=== PATIENT | female | born 1980 | race African-American/Black ===

== ENCOUNTER 2019-10-13 04:05 | Inpatient (IN) | payer OTHER ==
[~2019-10-13] VITALS: Ht 157.5 cm; Wt 87.0 kg
[2019-10-13 07:59] VITALS: BP 150/99
--- NOTE | 2019-10-13 08:00 | NUR ---
NEW PATIENT ADMIT VIA STRETCHER FROM [place] FOR HIGHER LEVEL OF CARE. PATIENT TRANSFERRED TO BED EASILY. PATIENT IS AWAKE, ALERT AND ORIENTED X 4. PATIENT IS VERY PLEASANT IN NO ACUTE DISTRESS. PATIENT ASSESMENT COMPLETED. PATIENT ON NC @ 4L/MIN. O2 SAT 95%. BP 150/99. PATIENT DENIES ANY NEEDS OR PAIN. WILL CONTINUE WITH PLAN OF CARE. ORIENTED TO CALL LIGHT AND BATHROOM. SR UPX 2 BED IN LOW POSITION AND CALL LIGHT IN REACH.
[2019-10-13 08:45] LABS: BASOPHILS 0.1 % (0-2); EOSINOPHILS 0 % (0-7); HEMATOCRIT 34.7 % (36.0-48.0); HEMOGLOBIN 10.7 g/dL (12-16); IMMATURE GRANULOCYTES 1.1 % (0-5); LYMPHOCYTES 7.8 % (15-50); MCH 23.2 pg (26.0-34.0); MCHC 30.8 g/dL (31.0-37.0); MCV 75.3 fL (80.0-100.0); MEAN PLATELET VOLUME 10.2 fL (7.4-10.4); MONOCYTES 4.3 % (2-11); NEUTROPHILS 86.7 % (40-80); PLATELET COUNT 344 10x3/uL (130-400); RBC 4.61 10x6/uL (4.00-5.40); WBC 18.6 10x3/uL (4.8-10.8)
[2019-10-13 08:59] VITALS: BP 150/99; Ht 157.5 cm; Wt 87.0 kg
[2019-10-13] MEDS ORDERED: AMBIEN5 MG PO (09:11)
[2019-10-13 09:13] LABS: ALBUMIN 2.6 g/dL (3.4-5.0); ALKALINE PHOSPHATASE 82 U/L (30-120); ALT (SGPT) 83 U/L (10-68); BILIRUBIN - TOTAL 0.34 mg/dL (0.2-1.3); C-REACTIVE PROTEIN 14.7 mg/dL (0.0-0.9); CALC OSMOLALITY 276 mosm/kg (275-300); CALCIUM 8.4 mg/dL (8.5-10.1); CHLORIDE - SERUM 100 mmol/L (98-107); CREATININE - SERUM 0.7 mg/dL (0.6-1.3); FERRITIN 83 ng/mL (3-244); GLUCOSE 179 mg/dL (74-106); PROTEIN - SERUM 7.6 g/dL (6.4-8.2); SODIUM 137 mmol/L (136-145); UREA NITROGEN 9 mg/dL (7-18); eGFR NON AFRICAN AMERICAN > 90 mL/min (90-120)
[2019-10-13] MEDS ORDERED: PREDNISONE20 MG PO (09:13)
[2019-10-13] MEDS ORDERED: NORVASC10 MG PO (09:38)
[2019-10-13] MEDS ORDERED: GABAPENTIN300 MG PO (09:39)
[2019-10-13] MEDS ORDERED: COZAAR100 MG PO (09:39)
[2019-10-13] MEDS ORDERED: METHOTREXATE2.5 MG PO (09:41)
[2019-10-13] MEDS ORDERED: SYMBICORT 80-10.2 GM INH (09:42)
[2019-10-13] MEDS ORDERED: ALBUTEROL SULF8.5 GM INH (09:44)
[2019-10-13 09:47] LABS: ERYTHROCYTE SEDIMENTATION RATE 60 mm/hr (0-20)
--- NOTE | 2019-10-13 10:00 | NUR ---
DR MALDONADO IN [facility]. NEW ORDERS RECEIVED.
--- NOTE | 2019-10-13 11:50 | NUR ---
PATIENT IS STABLE AND VSS. PATIENT TO CT VIA WC ACCOMPANIED BY CT STAFF. PATIENT HAS MASK ON.
--- NOTE | 2019-10-13 12:20 | NUR ---
PATIENT RETURNED TO ROOM VIA WC ACCOMPANIED BY CT STAFF. WILL CONTINUE TO MONITOR. SR UP X 2 BED IN LOW POSITION AND CALL LIGHT IN REACH.
[2019-10-13 13:53] LABS: INR 1.08 (0.85-1.17)
[2019-10-13 13:55] LABS: D-DIMER-QUANTITATIVE 0.82 ug/mLFEU (0.20-0.54)
[2019-10-13 14:24] LABS: C-REACTIVE PROTEIN 14.5 mg/dL (0.0-0.9)
[2019-10-13 14:36] LABS: ERYTHROCYTE SEDIMENTATION RATE 59 mm/hr (0-20)
--- NOTE | 2019-10-13 15:06 | NUR ---
PATIENT RESTING IN BS CHAIR WITH EYES CLOSED AND BREATHING EVENLY. WILL CONTINUE TO MONITOR. CALL LIGHT IN REACH.
--- NOTE | 2019-10-13 17:36 | NUR ---
PATIENT O2SAT 84% ON 5L. INSTRUCTED PATIENT TO COUGH AND DEEP BREATHE. O2 SAT @ 88%. SPOKE WITH DR MALDONADO INSTRUCTED TO INCREASE 6%. O2 SAT@ 92. WILL CONTINUE TO MONITOR. SR UP X 2 BED IN LOW POSITION AND CALL LIGHT IN REACH.
[2019-10-13 18:04] VITALS: BP 147/92
--- NOTE | 2019-10-13 20:27 | NUR ---
ASSESSMENT COMPLETED AT 2010 HRS. PT DENIED ANY DISCOMFORT. PT STATED SHE TOOK A SHOWER EARLIER. BED LINENS CHANGED. ST PER CM HR 107. ALERT AND ORIENTED TO PERSON, PLACE AND TIME. [place]. IV TO L WRIST SL. LUNGS DIMINISHED IN BASES BILAT. O2 6LNC. PT STATES SHE IS FEELING BETTER. SR UP X2, CALL LIGHT WITHIN REACH.
[2019-10-13 21:39] VITALS: BP 148/86
--- NOTE | 2019-10-13 22:08 | NUR ---
PM MEDS GIVEN. O2 SAT 90% ON 6LNC. OTHER VSS. NO DISTRESS NOTED. SR UP X1, CALL LIGHT WITHIN REACH.
--- NOTE | 2019-10-14 00:37 | NUR ---
PT RESTING WTH EYES CLOSED. RESP EVEN AND REGULAR. SR UP X2, CALL LIGHT WITHIN REACH.
[2019-10-14 00:42] VITALS: BP 145/92
--- NOTE | 2019-10-14 02:11 | NUR ---
SOLUMEDROL 60MG SIVP GIVEN PER ORDERS. PT DENIED ANY DISCOMFORT. CALL LIGHT WITHIN REACH.
--- NOTE | 2019-10-14 04:02 | NUR ---
PT RESTIN GWITH EYES CLOSED. RESP EVEN AND REGULAR. SR UP X1, CALL LIGHT WITHIN REACH.
[2019-10-14 04:45] VITALS: BP 143/86
--- NOTE | 2019-10-14 06:25 | NUR ---
O2 SAT 83% WITH AM VS. O2 AT UP TO 94% AFTER TAKING SEVERAL DEEP BREATHES. O2 6LNC. PT SOB WITH ACTIVITY. NEEDS MET; WILL CONTINUE TO MONITOR.
[2019-10-14 06:28] LABS: HEMATOCRIT 34.7 % (36.0-48.0); HEMOGLOBIN 10.5 g/dL (12-16); MCHC 30.3 g/dL (31.0-37.0); MCV 75.9 fL (80.0-100.0); MEAN PLATELET VOLUME 10.8 fL (7.4-10.4); PLATELET COUNT 348 10x3/uL (130-400); RBC 4.57 10x6/uL (4.00-5.40); RDW 15.9 % (11.5-14.5); WBC 24.4 10x3/uL (4.8-10.8)
[2019-10-14 06:39] LABS: ALBUMIN 2.5 g/dL (3.4-5.0); ALKALINE PHOSPHATASE 82 U/L (30-120); ALT (SGPT) 79 U/L (10-68); BILIRUBIN - TOTAL 0.23 mg/dL (0.2-1.3); CALC OSMOLALITY 273 mosm/kg (275-300); CALCIUM 8.6 mg/dL (8.5-10.1); CARBON DIOXIDE 27.6 mmol/L (21.0-32.0); CHLORIDE - SERUM 100 mmol/L (98-107); CREATININE - SERUM 0.8 mg/dL (0.6-1.3); GLUCOSE 228 mg/dL (74-106); POTASSIUM - SERUM 4.3 mmol/L (3.5-5.1); PRO BNP 87 pg/mL (0-125); PROTEIN - SERUM 7.2 g/dL (6.4-8.2); SODIUM 134 mmol/L (136-145); UREA NITROGEN 11 mg/dL (7-18); eGFR NON AFRICAN AMERICAN 84 mL/min (90-120)
[2019-10-14 06:48] LABS: LYMPHOCYTES 4 % (15-50); NEUTROPHILS 96 % (40-80); PLATELET ESTIMATE NORMAL
--- NOTE | 2019-10-14 07:20 | NUR ---
RECIEVE REPORT. ALERT AND ORIENTED X4. SITTING UP IN BED. SINUS RYTHM 98 ON TELEMETRY. DENIES ANY NEEDS. CONTINUE PLAN OF CARE AND SAFETY PRECAUTIONS.
[2019-10-14 08:00] VITALS: BP 134/86
--- NOTE | 2019-10-14 10:27 | NUR ---
ALERT AND ORIENTED X4. SITTING UP IN BED. LT HAND IV INFILTRATED. DC LT HAND IV TIP INTACT. RESITE IV RT HAND 22G SUCCESSFUL X1 ATTEMPT. ANTIBIOTIC INFUSING ORDERED. SINUS TACH 103 ON TELEMETRY. REPORTS HEADACHE. NO PRN MEDICATIONS ORDERED. PAGE MOLLY CUMMINGS. CONTINUE PLAN OF CARE AND SAFETY PRECAUTIONS.
[2019-10-14 12:11] VITALS: BP 135/82
[2019-10-14 15:56] VITALS: BP 127/76
--- NOTE | 2019-10-14 17:31 | NUR ---
ALERT AND ORIENTED X4. UP TO SHOWER AND LINEN CHANGE.
[2019-10-14 19:49] VITALS: BP 145/92
--- NOTE | 2019-10-14 22:43 | NUR ---
INITIAL ROUNDS COMPLETED AT 1950 HRS. PT DENIED ANY DISCOMFORT. ASSESSMENT COMPLTED AT THAT TIME. IV TO R HAND SL. ALERT AND ORIENTED TO PERSON, PLACE AND TIME. [place]. O2 5LNC. ST PER CM HR 100. LUNGS DIMINISHED IN BASES BILAT. [place]. 1+ EDEMA NOTED TO BILAT LOWER EXTREMITIES. PALBABLE PERIPHERAL PULSES. PT CURRENTLY RESTING WITH EYES CLOSED. RESP EVEN AND REGULAR. SR UP X1, CALL LIGHT WITHIN REACH.
[2019-10-15 00:12] VITALS: BP 141/83
--- NOTE | 2019-10-15 00:57 | NUR ---
VSS. PT DENIES ANY SOB. SR UP X1, CALL LIGHT WITHIN REACH.
[2019-10-15 03:52] VITALS: BP 138/96
--- NOTE | 2019-10-15 04:27 | NUR ---
VSS. TYLENO; 325MG PO GIVEN FOR C/O PEARSON. WILL CONTINUE TO MONITOR. CALL LIGHT WITHIN REACH.
--- NOTE | 2019-10-15 06:03 | NUR ---
VSS THROUGHOUT NIGHT. PT STATED TYLENOL ESSENTIALLY RELIEVED HER PEARSON. RESTED WELL DURING NIGHT. NEEDS MET; WILL CONTINUE TO MONITOR.
[2019-10-15 06:50] LABS: ALBUMIN 2.5 g/dL (3.4-5.0); ALKALINE PHOSPHATASE 83 U/L (30-120); ALT (SGPT) 74 U/L (10-68); BILIRUBIN - TOTAL 0.13 mg/dL (0.2-1.3); CALC OSMOLALITY 276 mosm/kg (275-300); CALCIUM 8.9 mg/dL (8.5-10.1); CHLORIDE - SERUM 98 mmol/L (98-107); CREATININE - SERUM 0.8 mg/dL (0.6-1.3); POTASSIUM - SERUM 4.4 mmol/L (3.5-5.1); PROTEIN - SERUM 7.3 g/dL (6.4-8.2); SODIUM 133 mmol/L (136-145); UREA NITROGEN 13 mg/dL (7-18); eGFR NON AFRICAN AMERICAN 84 mL/min (90-120)
[2019-10-15 06:52] LABS: BASOPHILS 0.1 % (0-2); EOSINOPHILS 0 % (0-7); GLUCOSE 303 mg/dL (74-106); HEMATOCRIT 34.9 % (36.0-48.0); HEMOGLOBIN 10.6 g/dL (12-16); IMMATURE GRANULOCYTES 2.2 % (0-5); MCH 22.9 pg (26.0-34.0); MCHC 30.4 g/dL (31.0-37.0); MCV 75.4 fL (80.0-100.0); MEAN PLATELET VOLUME 10.5 fL (7.4-10.4); MONOCYTES 4.9 % (2-11); NEUTROPHILS 85.8 % (40-80); PLATELET COUNT 396 10x3/uL (130-400); RBC 4.63 10x6/uL (4.00-5.40); RDW 15.8 % (11.5-14.5); WBC 28.1 10x3/uL (4.8-10.8)
--- NOTE | 2019-10-15 07:20 | NUR ---
RECIEVE REPORT. ALERT AND ORIENTED X4. SITTING UP IN BED. SINUS RYTHM ON TELEMETRY. DENIES ANY NEEDS. NO SIGNS OF DISTRESS. CONTINUE PLAN OF CARE AND SAFETY PRECAUTIONS.
[2019-10-15 08:40] VITALS: BP 127/100
[2019-10-15 14:42] VITALS: BP 139/87
--- NOTE | 2019-10-15 15:40 | NUR ---
ALERT AND ORIENTED X4. SITTING UP IN BED. RT HAND IV INFILTRATED. VASCULAR ACCESS CONSULTED DUE TO HARD STICK AND MULTIPLE ANTIBIOTICS. NOTIFY DINESH OF CONSULT. SINUS TACH 110 ON TELEMETRY. ATIVAN GIVEN FOR ANXIETY. DENIES ANY OTHER NEEDS AT THIS TIME. CONTINUE PLAN OF CARE AND SAFETY PRECAUTIONS.
[2019-10-15 20:20] VITALS: BP 130/85
[2019-10-16 06:27] LABS: BASOPHILS 0.1 % (0-2); EOSINOPHILS 0 % (0-7); HEMATOCRIT 35.4 % (36.0-48.0); HEMOGLOBIN 10.8 g/dL (12-16); IMMATURE GRANULOCYTES 3.6 % (0-5); LYMPHOCYTES 8.1 % (15-50); MCH 23.2 pg (26.0-34.0); MCHC 30.5 g/dL (31.0-37.0); MEAN PLATELET VOLUME 10.4 fL (7.4-10.4); MONOCYTES 5.2 % (2-11); PLATELET COUNT 430 10x3/uL (130-400); RBC 4.66 10x6/uL (4.00-5.40); RDW 15.5 % (11.5-14.5); WBC 25.8 10x3/uL (4.8-10.8)
[2019-10-16 06:45] LABS: ALBUMIN 2.7 g/dL (3.4-5.0); ALKALINE PHOSPHATASE 84 U/L (30-120); ALT (SGPT) 74 U/L (10-68); BILIRUBIN - TOTAL 0.35 mg/dL (0.2-1.3); CALC OSMOLALITY 280 mosm/kg (275-300); CALCIUM 8.8 mg/dL (8.5-10.1); CARBON DIOXIDE 29.2 mmol/L (21.0-32.0); CHLORIDE - SERUM 98 mmol/L (98-107); CREATININE - SERUM 0.8 mg/dL (0.6-1.3); GLUCOSE 325 mg/dL (74-106); POTASSIUM - SERUM 4.1 mmol/L (3.5-5.1); PROTEIN - SERUM 7.4 g/dL (6.4-8.2); SODIUM 134 mmol/L (136-145); UREA NITROGEN 13 mg/dL (7-18); VANCOMYCIN - TROUGH 9.3 ug/mL (10.0-20.0); eGFR NON AFRICAN AMERICAN 84 mL/min (90-120)
[2019-10-16 10:09] LABS: ANA REFLEX - DIRECT Negative (Negative)
[2019-10-16 10:54] VITALS: BP 117/72
[2019-10-16 12:10] LABS: BILIRUBIN NEGATIVE (NEGATIVE); GLUCOSE 1000 mg/dL (NEGATIVE); KETONE NEGATIVE (NEGATIVE); NITRITE NEGATIVE (NEGATIVE); UROBILINOGEN NORMAL (NORMAL)
[2019-10-16 12:12] LABS: BACTERIA FEW /hpf (NEGATIVE); EPITHELIAL CELLS 0-5 /hpf (0-5); RED CELLS - URINE >50 /hpf (0-5); TALC POWDER CRYSTALS OCC /hpf (NONE SEEN); WHITE CELLS - URINE OCC /hpf (NEGATIVE)
--- NOTE | 2019-10-16 14:06 | NUR ---
Covid19 test results negative. Notified FRANCES Quiles and [facility]. May discontinue COVID19 isolation.
--- NOTE | 2019-10-16 14:56 | NUR ---
PT COVID NEGATIVE. PT TO TRANSFER TO ROOM 2135 ONCE THAT ROOM IS CLEANED.
--- NOTE | 2019-10-16 15:37 | NUR ---
PT TO BE NPO AFTER MIDNGIHT FOR BRONCHOSCOPY TOMORROW. PT AWARE AND AGREED.
[2019-10-16 15:51] VITALS: BP 142/86
--- NOTE | 2019-10-16 15:55 | NUR ---
DR. CAROLINA STATES TO HOLD LOVENOX TOMORROW AM.
--- NOTE | 2019-10-16 16:48 | NUR ---
azithromycin did not infuse this morning. will fix emar.
--- NOTE | 2019-10-16 16:50 | NUR ---
CONSENTS FOR BROCHOSCOPY TOMMORROW SIGNED.
--- NOTE | 2019-10-16 16:58 | MORECARE ---
CASE MANAGEMENT DISCHARGE SUMMARY PATIENT: PARKER DANGELO UNIT: [id number] ADM DATE: 10/13/19 AGE: 39 : [birth year] SEX: F ROOM/BED: D.2135 AUTHOR: PEPE MENSAH PHYSICIAN: REFERRING PHYSICIAN: DEYANIRA ALEJANDRO MD DATE OF SERVICE: 10/16/19 Discharge Plan Patient Name: PARKER DANGELO Facility: [facility]:[place] : 1980 Planned Disposition: Home Anticipated Discharge Date: Discharge Date: Expected LOS: Initial Reviewer: [email or web address] Initial Review Date: 10/16/2019 Generated: 10/16/19 5:58 pm DCPIA - Discharge Planning Initial Assessment Updated by [id number]: Henna Zelaya on 10/16/19 4:52 pm * Is the patient Alert and Oriented? Yes * PCP Dr. Elian Santoyo in [place] * Pharmacy [facility] in [place] * Preadmission Environment Home with Family * ADLs Independent * Equipment None * List name and contact numbers for known caregivers / representatives who currently or will assist patient after discharge: Jailene schmidt [phone] * Verbal permission to speak to the caregivers and representatives has been obtained from the patient. Yes * Community resources currently utilized None * Additional services required to return to the preadmission environment? Yes * Can the patient safely return to the preadmission environment? Yes * Has this patient been hospitalized within the prior 30 days at any hospital? No Patient Name: PARKER DANGELO Page [id number] at 1658 All edits/amendments must be made on the electronic document DICTATION DATE: 10/16/191657 GAS APPLIANCE REPAIRER: SESAR 10/16/191657 RPT#: [id number] DC DATE: STATUS: ADM IN [facility] [address] [place] [address] END OF REPORT
--- NOTE | 2019-10-16 17:06 | MORECARE ---
CASE MANAGEMENT DISCHARGE SUMMARY PATIENT: PARKER DANGELO UNIT: [id number] ADM DATE: 10/13/19 AGE: 39 : 78 SEX: F ROOM/BED: D.6446 AUTHOR: MAKENNA,DOC PHYSICIAN: REFERRING PHYSICIAN: DEYANIRA ALEJANDRO MD DATE OF SERVICE: 10/16/19 Discharge Plan Patient Name: PARKER DANGELO Facility: [facility]:[place] : 1980 Planned Disposition: Home Anticipated Discharge Date: Discharge Date: Expected LOS: Initial Reviewer: [email or web address] Initial Review Date: 10/16/2019 Generated: 10/16/19 6:06 pm Comments DCP- Discharge Planning Updated by [id number]: Henna Zelaya on 10/16/19 4:[address] Patient Name: PARKER DANGELO Admission Status: Elective Accout number: [id number] Admission Date: 10-13-2019 : 1980 Admission Diagnosis:ACUTE RESPIRATORY FAILURE WITH HYPOXIA Attending: DEYANIRA ALEJANDRO Current LOS: 3 Anticipated DC Date: Planned Disposition: Home Primary Insurance: AETNA PPO Discharge Planning Comments: CM called patient to discuss discharge planning/needs. She states that she lives with her 16 year old daughter/ States her 19 year old son is home from college at this time and will pick her up on discharge. She states she has applied for disability and has been turned down. I informed her that she could try again and have her PCP assist with a letter. She states that she has insurance only through work and when she's not working, she will no longer have insurance. She has applied for SNAP benefits. She states she is independent with all ADL's and IADL's. I have given her a goodRx card and voiced understanding of comparing GoodRx coupons on line. She states she does have a computer. I have called Dr. De La Rosa's office and asked Sia to call regarding possible sample inhalers. [facility] states they do not have samples. I have given the patient possible alternatives that she can speak with Dr. Cleary about. CM will continue to follow and assist with discharge planning/needs. Hands Hanger: Henna Zelaya DCPIA - Discharge Planning Initial Assessment Updated by [email or web address]: Henna Dialloell on 10/16/19 4:52 pm * Is the patient Alert and Oriented? Yes * PCP Dr. Elian Santoyo in [place] * Pharmacy [facility] in [place] * Preadmission Environment Home with Family * ADLs Independent * Equipment None * List name and contact numbers for known caregivers / representatives who currently or will assist patient after discharge: Jailene schmidt- [phone] * Verbal permission to speak to the caregivers and representatives has been obtained from the patient. Yes * Community resources currently utilized None * Additional services required to return to the preadmission environment? Yes * Can the patient safely return to the preadmission environment? Yes * Has this patient been hospitalized within the prior 30 days at any hospital? No Last DP export: 10/16/19 3:58 pm Patient Name: PARKER DANGELO Page [id number] at 1706 All edits/amendments must be made on the electronic document DICTATION DATE: 10/16/191705 LINE DIRECTOR: SESAR 10/16/191705 RPT#: [id number] DC DATE: STATUS: ADM IN [facility] [address] [place] [address] END OF REPORT
--- NOTE | 2019-10-16 18:02 | NUR ---
I have reviewed this patient and I concur with the Shift Assessment completed by the Licensed Practical Nurse today this shift.
--- NOTE | 2019-10-16 19:35 | NUR ---
EVENING ROUNDS COMPLETE. PT SITTING UP IN BED. NO SIGNS OF DISTRESS. PT DENIES ANY PAIN OR NEEDS AT THIS TIME. CL IN REACH, BED IN LOWEST POSITION.
[2019-10-16 21:44] VITALS: BP 138/85
[2019-10-17 00:15] VITALS: BP 131/84
[2019-10-17 05:08] VITALS: BP 121/74
[2019-10-17 06:43] LABS: HEMATOCRIT 34.8 % (36.0-48.0); HEMOGLOBIN 10.6 g/dL (12-16); MCH 22.9 pg (26.0-34.0); MCHC 30.5 g/dL (31.0-37.0); MCV 75.3 fL (80.0-100.0); MEAN PLATELET VOLUME 10.6 fL (7.4-10.4); PLATELET COUNT 439 10x3/uL (130-400); RBC 4.62 10x6/uL (4.00-5.40); RDW 15.3 % (11.5-14.5); WBC 28.1 10x3/uL (4.8-10.8)
[2019-10-17 06:46] LABS: ALBUMIN 2.6 g/dL (3.4-5.0); ALKALINE PHOSPHATASE 84 U/L (30-120); ALT (SGPT) 64 U/L (10-68); BILIRUBIN - TOTAL 0.23 mg/dL (0.2-1.3); CALC OSMOLALITY 277 mosm/kg (275-300); CALCIUM 8.6 mg/dL (8.5-10.1); CARBON DIOXIDE 29.3 mmol/L (21.0-32.0); CHLORIDE - SERUM 97 mmol/L (98-107); CREATININE - SERUM 0.7 mg/dL (0.6-1.3); GLUCOSE 355 mg/dL (74-106); POTASSIUM - SERUM 4.4 mmol/L (3.5-5.1); PROTEIN - SERUM 7.1 g/dL (6.4-8.2); SODIUM 131 mmol/L (136-145); UREA NITROGEN 14 mg/dL (7-18); eGFR NON AFRICAN AMERICAN > 90 mL/min (90-120)
[2019-10-17 09:00] VITALS: BP 141/84
[2019-10-17 10:18] LABS: HYPOCHROMASIA OCC; LYMPHOCYTES 14 % (15-50); MONOCYTES 10 % (2-11); NEUTROPHILS 70 % (40-80); PLATELET ESTIMATE INCREASED; ROULEAUX OCC
[2019-10-17 11:09] LABS: ANGIOTENSIN CONVERTING ENZYME 35 U/L (14-82)
[2019-10-17 16:00] VITALS: BP 138/83
[2019-10-17 18:08] LABS: IMMUNOGLOBULIN E 481 IU/mL (6-495)
[2019-10-17 20:00] VITALS: BP 121/66
[2019-10-17 21:26] LABS: EOS BF 1 %; MACROPHAGES BF 4 %; MESOTHELIALS BF 3 %; NEUT - BF 14 %
[2019-10-17 21:28] LABS: MACROPHAGES BF 11 %; MESOTHELIALS BF 2 %; NEUT - BF 75 %
[2019-10-17 21:30] LABS: EOS BF 2 %; MACROPHAGES BF 6 %; NEUT - BF 77 %
--- NOTE | 2019-10-18 03:44 | NUR ---
PT PIV TO L FOREARM INFILTRATED. NEW PIV STARTED X1 ATTEMPT IN R FOREARM. CL IN REACH, BED IN LOWEST POSITION.
[2019-10-18 04:00] VITALS: BP 137/86; BP 141/93
[2019-10-18 05:40] LABS: BASOPHILS 0 % (0-2); EOSINOPHILS 0 % (0-7); HEMATOCRIT 34.6 % (36.0-48.0); HEMOGLOBIN 10.5 g/dL (12-16); IMMATURE GRANULOCYTES 2.6 % (0-5); LYMPHOCYTES 5.1 % (15-50); MCHC 30.3 g/dL (31.0-37.0); MCV 75.7 fL (80.0-100.0); MEAN PLATELET VOLUME 10.7 fL (7.4-10.4); MONOCYTES 3.5 % (2-11); NEUTROPHILS 88.8 % (40-80); PLATELET COUNT 441 10x3/uL (130-400); RBC 4.57 10x6/uL (4.00-5.40); RDW 15.6 % (11.5-14.5); WBC 25.1 10x3/uL (4.8-10.8)
[2019-10-18 06:26] LABS: ALBUMIN 2.7 g/dL (3.4-5.0); ANION GAP 11.6 mmol/L (8-16); BILIRUBIN - TOTAL 0.22 mg/dL (0.2-1.3); CALCIUM 8.6 mg/dL (8.5-10.1); CARBON DIOXIDE 27.1 mmol/L (21.0-32.0); POTASSIUM - SERUM 4.7 mmol/L (3.5-5.1); PROTEIN - SERUM 7.1 g/dL (6.4-8.2)
[2019-10-18 07:01] LABS: CREATININE - SERUM 0.9 mg/dL (0.6-1.3)
[2019-10-18 09:23] VITALS: BP 137/77
[2019-10-18] MEDS ORDERED: ZITHROMAX TRI-500 MG PO (12:49)
[2019-10-18] MEDS ORDERED: OMNICEF300 MG PO (12:49)
[2019-10-18] MEDS ORDERED: PREDNISONE20 MG PO (12:50)
--- NOTE | 2019-10-18 13:48 | MORECARE ---
CASE MANAGEMENT DISCHARGE SUMMARY PATIENT: PARKER DANGELO UNIT: [id number] ADM DATE: 10/13/19 AGE: 39 : 78 SEX: F ROOM/BED: D.4171 AUTHOR: MAKENNA,DOC PHYSICIAN: REFERRING PHYSICIAN: DEYANIRA ALEJANDRO MD DATE OF SERVICE: 10/18/19 Discharge Plan Patient Name: PARKER DANGELO Facility: [facility]:[place] : 1980 Planned Disposition: Home Anticipated Discharge Date: 10/18/19 Discharge Date: Expected LOS: 5 Initial Reviewer: [id number] Initial Review Date: 10/16/2019 Generated: 10/18/19 2:47 pm Comments DCP- Discharge Planning Updated by [id number]: Henna Zelaya on 10/16/19 4:[address] Patient Name: PARKER DANGELO Admission Status: Elective Accout number: [id number] Admission Date: 10-13-2019 : 1980 Admission Diagnosis:ACUTE RESPIRATORY FAILURE WITH HYPOXIA Attending: DEYANIRA ALEJANDRO Current LOS: 3 Anticipated DC Date: Planned Disposition: Home Primary Insurance: AETNA PPO Discharge Planning Comments: CM called patient to discuss discharge planning/needs. She states that she lives with her 16 year old daughter/ States her 19 year old son is home from college at this time and will pick her up on discharge. She states she has applied for disability and has been turned down. I informed her that she could try again and have her PCP assist with a letter. She states that she has insurance only through work and when she's not working, she will no longer have insurance. She has applied for SNAP benefits. She states she is independent with all ADL's and IADL's. I have given her a goodRx card and voiced understanding of comparing GoodRx coupons on line. She states she does have a computer. I have called Dr. De La Rosa's office and asked Sia to call regarding possible sample inhalers. [facility] states they do not have samples. I have given the patient possible alternatives that she can speak with Dr. Cleary about. CM will continue to follow and assist with discharge planning/needs. Investment Associate: Henna Zelaya DCPIA - Discharge Planning Initial Assessment Updated by [id number]: Henna Zelaya on 10/16/19 4:52 pm * Is the patient Alert and Oriented? Yes * PCP Dr. Elian Santoyo in [place] * Pharmacy [facility] in [place] * Preadmission Environment Home with Family * ADLs Independent * Equipment None * List name and contact numbers for known caregivers / representatives who currently or will assist patient after discharge: Jailene schmidt- [phone] * Verbal permission to speak to the caregivers and representatives has been obtained from the patient. Yes * Community resources currently utilized None * Additional services required to return to the preadmission environment? Yes * Can the patient safely return to the preadmission environment? Yes * Has this patient been hospitalized within the prior 30 days at any hospital? No External Providers External Provider: Jaleel Next Contact Date: Service Request Date: Service Type: Resolution: Reviewer: Comments: Last DP export: 10/16/19 4:06 pm Patient Name: PARKER DANGELO Page [id number] at 1348 All edits/amendments must be made on the electronic document DICTATION DATE: 10/18/19 1348 HEALTH CENTER ASSISTANT: SESAR 10/18/19 1348 RPT#: [id number] DC DATE: STATUS: ADM IN [facility] [address] [place] [address] END OF REPORT
--- NOTE | 2019-10-18 14:22 | MORECARE ---
CASE MANAGEMENT DISCHARGE SUMMARY PATIENT: RICHAR DANGELO UNIT: [id number] ADM DATE: 10/13/19 AGE: 39 : 78 SEX: F ROOM/BED: D.6158 AUTHOR: MAKENNA,DOC PHYSICIAN: REFERRING PHYSICIAN: DEYANIRA ALEJANDRO MD DATE OF SERVICE: 10/18/19 Discharge Plan Patient Name: RICHAR DANGELO Facility: [facility]:[place] : 1980 Planned Disposition: Home Anticipated Discharge Date: 10/18/19 Discharge Date: Expected LOS: 5 Initial Reviewer: [email or web address] Initial Review Date: 10/16/2019 Generated: 10/18/19 3:21 pm Comments DCP- Discharge Planning Updated by [id number]: Henna Zelaya on 10/16/19 4:[address] Patient Name: RICHAR DANGELO Admission Status: Elective Accout number: [id number] Admission Date: 10-13-2019 : 1980 Admission Diagnosis:ACUTE RESPIRATORY FAILURE WITH HYPOXIA Attending: DEYANIRA ALEJANDRO Current LOS: 3 Anticipated DC Date: Planned Disposition: Home Primary Insurance: AETNA PPO Discharge Planning Comments: CM called patient to discuss discharge planning/needs. She states that she lives with her 16 year old daughter/ States her 19 year old son is home from college at this time and will pick her up on discharge. She states she has applied for disability and has been turned down. I informed her that she could try again and have her PCP assist with a letter. She states that she has insurance only through work and when she's not working, she will no longer have insurance. She has applied for SNAP benefits. She states she is independent with all ADL's and IADL's. I have given her a goodRx card and voiced understanding of comparing GoodRx coupons on line. She states she does have a computer. I have called Dr. De La Rosa's office and asked Sia to call regarding possible sample inhalers. [facility] states they do not have samples. I have given the patient possible alternatives that she can speak with Dr. Cleary about. CM will continue to follow and assist with discharge planning/needs. Wheel Mill Operator: Henna Zelaya DCPIA - Discharge Planning Initial Assessment Updated by [id number]: Henna Zelaya on 10/16/19 4:52 pm * Is the patient Alert and Oriented? Yes * PCP Dr. Elian Santoyo in [place] * Pharmacy [facility] in [place] * Preadmission Environment Home with Family * ADLs Independent * Equipment None * List name and contact numbers for known caregivers / representatives who currently or will assist patient after discharge: Jailene schmidt [phone] * Verbal permission to speak to the caregivers and representatives has been obtained from the patient. Yes * Community resources currently utilized None * Additional services required to return to the preadmission environment? Yes * Can the patient safely return to the preadmission environment? Yes * Has this patient been hospitalized within the prior 30 days at any hospital? No External Providers External Provider: Jaleel Next Contact Date: Service Request Date: Service Type: Resolution: Reviewer: Comments: Coverage Notice Reviewer: [email or web address] Kiesha Milan Notice Issued Date-Time: 10/18/2019 14:03 Notice Type: Patient Choice Letter Notice Delivered To: Patient Relationship to Patient: Self Pen Or Pencil Assembly Machine Operator Name: Richar Dangelo Delivery Method: HAND - Hand Delivered Nuris Days: Prior Verbal Notification: Recipient Understood Notice: Yes Recipient Signature: Yes Med Rec Note Co-signed by Attending: Coverage Notice Comment: Patient Choice for Jose MENSAH Last DP export: 10/18/19 12:48 pm Patient Name: RICHAR DANGELO Page [id number] at 1422 All edits/amendments must be made on the electronic document DICTATION DATE: 10/18/19 142 SIZING SPONGER: SESAR 10/18/19 1421 RPT#: [id number] DC DATE: STATUS: ADM IN [facility] [address] [facility] [place] [address] END OF REPORT
--- NOTE | 2019-10-18 14:38 | MORECARE ---
CASE MANAGEMENT DISCHARGE SUMMARY PATIENT: RICHAR DANGELO UNIT: [id number] ADM DATE: 10/13/19 AGE: 39 : 78 SEX: F ROOM/BED: D.4037 AUTHOR: MAKENNA,DOC PHYSICIAN: REFERRING PHYSICIAN: DEYANIRA ALEJANDRO MD DATE OF SERVICE: 10/18/19 Discharge Plan Patient Name: RICHAR DANGELO Facility: [facility]:[place] : 1980 Planned Disposition: Home Anticipated Discharge Date: 10/18/19 Discharge Date: Expected LOS: 5 Initial Reviewer: [email or web address] Initial Review Date: 10/16/2019 Generated: 10/18/19 3:37 pm Comments DCP- Discharge Planning Updated by [id number]: Zenobia Milan on 10/18/19 1:[address] RA sat at rest 88%. Patient choice for Portable O2 signed/provided to patient. Her choice is [facility] for DME. Order for O2 obtained and faxed to Ryan Rodriguez, with [facility]. Per Ryan a portable tank in on the way to the patient's room. Home O2 will be set up when the patient returns to her home in [address]. Patient notified of same. DCP- Discharge Planning Updated by [id number]: Henna Zelaya on 10/16/19 4:[address] Patient Name: RICHAR DANGELO Admission Status: Elective Accout number: [id number] Admission Date: 10-13-2019 : 1980 Admission Diagnosis:ACUTE RESPIRATORY FAILURE WITH HYPOXIA Attending: DEYANIRA ALEJANDRO Current LOS: 3 Anticipated DC Date: Planned Disposition: Home Primary Insurance: AET[employer] PPO Discharge Planning Comments: CM called patient to discuss discharge planning/needs. She states that she lives with her 16 year old daughter/ States her 19 year old son is home from college at this time and will pick her up on discharge. She states she has applied for disability and has been turned down. I informed her that she could try again and have her PCP assist with a letter. She states that she has insurance only through work and when she's not working, she will no longer have insurance. She has applied for SNAP benefits. She states she is independent with all ADL's and IADL's. I have given her a goodRx card and voiced understanding of comparing GoodRx coupons on line. She states she does have a computer. I have called Dr. De La Rosa's office and asked [facility] to call regarding possible sample inhalers. [facility] states they do not have samples. I have given the patient possible alternatives that she can speak with Dr. Cleary about. will continue to follow and assist with discharge planning/needs. Broker: Henna Zelaya DCPIA - Discharge Planning Initial Assessment Updated by [id number]: Henna Zelaya on 10/16/19 4:52 pm * Is the patient Alert and Oriented? Yes * PCP Dr. Elian Santoyo in [address] * Pharmacy [facility] in [address] * Preadmission Environment Home with Family * ADLs Independent * Equipment None * List name and contact numbers for known caregivers / representatives who currently or will assist patient after discharge: Jailene schmidt- [phone] * Verbal permission to speak to the caregivers and representatives has been obtained from the patient. Yes * Community resources currently utilized None * Additional services required to return to the preadmission environment? Yes * Can the patient safely return to the preadmission environment? Yes * Has this patient been hospitalized within the prior 30 days at any hospital? No Coverage Notice Reviewer: [id number] Kiesha Milan Notice Issued Date-Time: 10/18/2019 14:03 Notice Type: Patient Choice Letter Notice Delivered To: Patient Relationship to Patient: Self Quill Worker Name: Richar Dangelo Delivery Method: HAND - Hand Delivered Nuris Days: Prior Verbal Notification: Recipient Understood Notice: Yes Recipient Signature: Yes Med Rec Note Co-signed by Attending: Coverage Notice Comment: Patient Choice for Jose WEN. Last DP export: 10/18/19 1:22 pm Patient Name: RICHAR DNAGELO Page [id number] at 1438 All edits/amendments must be made on the electronic document DICTATION DATE: 10/18/191436 LUNCH WAGON OPERATOR: SESAR 10/18/191436 RPT#: [id number] DC DATE: STATUS: ADM IN [facility] [address] [place] [address] END OF REPORT
[2019-10-19 04:07] LABS: CYCLIC CITRULL PEPTIDE IGG/IGA 9 units (0-19)
[2019-10-19 11:09] LABS: FUNGUS STAIN Final report (())
[2019-10-19 15:10] LABS: ACID FAST SMEAR Negative (()); AFB SPECIMEN PROCESSING Concentration (())
[2019-10-22 13:09] LABS: FUNGUS CULTURE RESULT 1 Candida albicans (()); FUNGUS MYCOLOGY CULTURE Preliminary report (())
--- NOTE | 2019-10-22 13:22 | MORECARE ---
CASE MANAGEMENT DISCHARGE SUMMARY PATIENT: RICHAR DANGELO UNIT: [id number] ADM DATE: 10/13/19 AGE: 39 : 78 SEX: F ROOM/BED: D.9545 AUTHOR: MAKENNA,DOC PHYSICIAN: REFERRING PHYSICIAN: DEYANIRA ALEJANDRO MD DATE OF SERVICE: 10/22/19 Discharge Plan Patient Name: RICHAR DANGELO Facility: [facility]:[place] : 1980 Planned Disposition: Home Anticipated Discharge Date: 10/18/19 Discharge Date: 10/18/2019 Expected LOS: 5 Initial Reviewer: [id number] Initial Review Date: 10/16/2019 Generated: 10/22/19 2:21 pm Comments DCP- Discharge Planning Updated by [id number]: Zenobia Milan on 10/18/19 1:[address] RA sat at rest 88%. Patient choice for Portable O2 signed/provided to patient. Her choice is [facility] for DME. Order for O2 obtained and faxed to Ryan Rodriguez, with [facility]. Per Ryan a portable tank in on the way to the patient's room. Home O2 will be set up when the patient returns to her home in [place]. Patient notified of same. DCP- Discharge Planning Updated by [email or web address]: Henna Zelaya on 10/16/19 4:[address] Patient Name: RICHAR DANGELO Admission Status: Elective Accout number: [id number] Admission Date: 10-13-2019 : 1980 Admission Diagnosis:ACUTE RESPIRATORY FAILURE WITH HYPOXIA Attending: DEYANIRA ALEJANDRO Current LOS: 3 Anticipated DC Date: Planned Disposition: Home Primary Insurance: [employer] PPO Discharge Planning Comments: CM called patient to discuss discharge planning/needs. She states that she lives with her 16 year old daughter/ States her 19 year old son is home from college at this time and will pick her up on discharge. She states she has applied for disability and has been turned down. I informed her that she could try again and have her PCP assist with a letter. She states that she has insurance only through work and when she's not working, she will no longer have insurance. She has applied for SNAP benefits. She states she is independent with all ADL's and IADL's. I have given her a goodRx card and voiced understanding of comparing GoodRx coupons on line. She states she does have a computer. I have called Dr. De La Rosa's office and asked Sia to call regarding possible sample inhalers. [facility] states they do not have samples. I have given the patient possible alternatives that she can speak with Dr. Cleary about. will continue to follow and assist with discharge planning/needs. Test Deck Supervisor: Henna Zelaya DCPIA - Discharge Planning Initial Assessment Updated by [email or web address]: Henna Zelaya on 10/16/19 4:52 pm * Is the patient Alert and Oriented? Yes * PCP Dr. Elian Santoyo in [place] * Pharmacy [facility] in [place] * Preadmission Environment Home with Family * ADLs Independent * Equipment None * List name and contact numbers for known caregivers / representatives who currently or will assist patient after discharge: Jailene schmidt- [phone] * Verbal permission to speak to the caregivers and representatives has been obtained from the patient. Yes * Community resources currently utilized None * Additional services required to return to the preadmission environment? Yes * Can the patient safely return to the preadmission environment? Yes * Has this patient been hospitalized within the prior 30 days at any hospital? No Coverage Notice Reviewer: [email or web address] Kiesha Milan Notice Issued Date-Time: 10/18/2019 14:03 Notice Type: Patient Choice Letter Notice Delivered To: Patient Relationship to Patient: Self Locker Attendant Name: Richar Dangelo Delivery Method: HAND - Hand Delivered Nuris Days: Prior Verbal Notification: Recipient Understood Notice: Yes Recipient Signature: Yes Med Rec Note Co-signed by Attending: Coverage Notice Comment: Patient Choice for [facility]. Last DP export: 10/18/19 1:38 pm Patient Name: RICHAR DANGELO Page [id number] at 1322 All edits/amendments must be made on the electronic document DICTATION DATE: 10/22/19 1321 IRRIGATOR: SESAR 10/22/19 1321 RPT#: [id number] DC DATE:10/18/19 STATUS: DIS IN [facility] [address] [place] [address] END OF REPORT
[2019-10-22 14:10] LABS: AEROBE ID Final report (())
== END 2019-10-18 17:56 | disposition home or self-care (01) | DRG 177 ==
LOC: D.M2 04:05
PROVIDERS: Internal Medicine Nephrology; Internal Medicine Pulmonary Disease; ADMIT Family Medicine; ATTEND Family Medicine
PROC: 0BDG8ZX Extraction of Left Upper Lung Lobe, Via Natural or Artificial Opening Endoscopic, Diagnostic (ICD-10-PCS; 2019-10-17)
PROC: 0B9J8ZX Drainage of Left Lower Lung Lobe, Via Natural or Artificial Opening Endoscopic, Diagnostic (ICD-10-PCS; 2019-10-17)
PROC: 0BDJ8ZX Extraction of Left Lower Lung Lobe, Via Natural or Artificial Opening Endoscopic, Diagnostic (ICD-10-PCS; principal; 2019-10-17 18:00)
DX: J15.6 Pneumonia due to other Gram-negative bacteria (principal); J96.01 Acute respiratory failure with hypoxia; J45.901 Unspecified asthma with (acute) exacerbation; J15.212 Pneumonia due to Methicillin resistant Staphylococcus aureus; E66.01 Morbid (severe) obesity due to excess calories; I10 Essential (primary) hypertension; K21.9 Gastro-esophageal reflux disease without esophagitis; D50.9 Iron deficiency anemia, unspecified; F41.8 Other specified anxiety disorders; Z68.36 Body mass index [BMI] 36.0-36.9, adult

== ENCOUNTER → 2020-03-26 09:13 | Outpatient (CLI) | payer MEDICAID ==
[2019-10-13 08:59] VITALS: BMI 36.6
[~2020-03-26 09:13] MED LIST: ALBUTEROL SULF8.5 GM INH; AMBIEN5 MG PO; COZAAR100 MG PO; GABAPENTIN300 MG PO; METHOTREXATE2.5 MG PO; NORVASC10 MG PO; OMNICEF300 MG PO; PREDNISONE20 MG PO; SYMBICORT 80-10.2 GM INH; ZITHROMAX TRI-500 MG PO
== END | disposition home or self-care (01) ==
LOC: D.RT 03-10 13:30 → D.RAD 03-13 14:30 → D.RT 03-14 15:00
PROVIDERS: ATTEND Internal Medicine Pulmonary Disease
DX: R06.09 Other forms of dyspnea (principal); Z87.01 Personal history of pneumonia (recurrent)